=== PATIENT | male | born 1955 | race African-American/Black ===

== ENCOUNTER 2016-07-24 12:58 | Inpatient (IN) | payer OTHER ==
[2016-07-24 13:26] VITALS: BMI 37.0
--- NOTE | 2016-07-24 15:36 | HP ---
CIWA Score - CIWA Score Nausea/Vomitin-Mild Nausea/No Vomiting Muscle Tremors: 4-Moderate,w/Arms Extend Anxiety: 3 Agitation: 4-Moderately Restless Paroxysmal Sweats: 3 Orientation: 0-Oriented Tacttile Disturbances: 0-None Auditory Disturbances: 0-None Visual Disturbances: 0-None Headache: 1-Very Mild CIWA-Ar Total Score: 16 Admission ROS BHS - HPI Chief Complaint: I am here to detox. Allergies/Adverse Reactions: Allergies Allergy/AdvReac Type Severity Reaction Status Date / Time No Known Allergies Allergy Verified 07/24/16 14:12 History of Present Illness: pt is a 60yr old male with a history of alcohol and cocaine dependence seeking detox for treatment. Exam Limitations: No Limitations - Ebola screening Have you traveled outside of the country in the last 21 days: No Have you had contact with anyone from an Ebola affected area: No Have you been sick,other than usual withdrawal symptoms: No - Review of Systems Constitutional: No Symptoms Reported, Chills EENT: reports: Tearing, Nose Congestion Respiratory: reports: No Symptoms reported Cardiac: reports: No Symptoms Reported GI: reports: Nausea, Poor Appetite, Poor Fluid Intake : reports: No Symptoms Reported Musculoskeletal: reports: No Symptoms Reported, Back Pain Integumentary: reports: Flushing, Sweating Neuro: reports: Headache, Tingling Endocrine: reports: Excessive Sweating, Flushing, Intolerance to Cold, Intolerance to Heat Hematology: reports: No Symptoms Reported Psychiatric: reports: Judgement Intact, Mood/Affect Appropiate, Orientated x3, Agitated, Anxious Other Systems: Reviewed and Negative Patient History - Patient Medical History Hx Anemia: No Hx Asthma: Yes Hx Chronic Obstructive Pulmonary Disease (COPD): No Hx Cancer: No Hx Cardiac Disorders: No Hx Congestive Heart Failure: No Hx Hypertension: No Hx Hypercholesterolemia: No Hx Pacemaker: No HX Cerebrovascular Accident: No Hx Seizures: No Hx Dementia: No Hx Diabetes: Yes (NIDDM) Hx Gastrointestinal Disorders: No Hx Liver Disease: No Hx Genitourinary Disorders: No Hx Sexually Transmitted Disorders: No Hx Renal Disease (ESRD): No Hx Thyroid Disease: No Hx Human Immunodeficiency Virus (HIV): No Hx Hepatitis C: No Hx Depression: No Hx Suicide Attempt: No Hx Bipolar Disorder: No Hx Schizophrenia: No - Patient Surgical History Past Surgical History: No Hx Neurologic Surgery: No Hx Cataract Extraction: No Hx Cardiac Surgery: No Hx Lung Surgery: No Hx Breast Surgery: No Hx Breast Biopsy: No Hx Abdominal Surgery: No Hx Appendectomy: No Hx Cholecystectomy: No Hx Genitourinary Surgery: No Hx Section: No Hx Orthopedic Surgery: No Anesthesia Reaction: No - PPD History Previous Implant?: Yes Documented Results: Negative w/o proof PPD to be Administered?: Yes - Reproductive History Patient is a Female of Child Bearing Age (11 -55 yrs old): No - Smoking Cessation Smoking history: Current every day smoker Have you smoked in the past 12 months: Yes Aproximately how many cigarettes per day: 3 Hx Chewing Tobacco Use: No Initiated information on smoking cessation: Yes 'Breaking Loose' booklet given: 07/24/16 - Substance & Tx. History Hx Alcohol Use: Yes Hx Substance Use: Yes Substance Use Type: Alcohol, Cocaine Hx Substance Use Treatment: Yes - Substances Abused Crack Route: Smoking Frequency: 1-2 times per week Amount used: $80 Age of first use: 48 Date of Last Use: 07/22/16 Alcohol-beer Route: Oral Frequency: Daily Amount used: 6 (40 oz.) Age of first use: 16 Date of Last Use: 07/24/16 Family Disease History - Family Disease History Family History: Denies Admission Physical Exam S - Vital Signs Vital Signs: Vital Signs - 24 hr 07/24/16 13:21 Temperature 97.9 F Pulse Rate 91 H Respiratory 20 Rate Blood Pressure 137/105 - Physical General Appearance: Yes: Appropriately Dressed, Moderate Distress, Obese, Tremorous, Irritable, Sweating, Anxious HEENTM: Yes: Hearing grossly Normal, Normal Voice Respiratory: Yes: Lungs Clear, Normal Breath Sounds, No Respiratory Distress Neck: Yes: No masses,lesions,Nodules Breast: Yes: Within Normal Limits Cardiology: Yes: Regular Rhythm, Regular Rate, S1, S2 Abdominal: Yes: Normal Bowel Sounds, Non Tender, Soft Genitourinary: Yes: Within Normal Limits Back: Yes: Normal Inspection Musculoskeletal: Yes: Gait Steady, Back pain Extremities: Yes: Normal Capillary Refill, Normal Inspection, Tremors Neurological: Yes: Fully Oriented, Alert, Normal Response Integumentary: Yes: Normal Color Lymphatic: Yes: Within Normal Limits - Diagnostic (1) Alcohol dependence with uncomplicated withdrawal Current Visit: Yes Status: Chronic (2) Cocaine dependence, uncomplicated Current Visit: Yes Status: Chronic (3) Nicotine dependence Current Visit: Yes Status: Chronic Qualifiers: Nicotine product type: cigarettes Substance use status: uncomplicated Qualified Code(s): F17.210 - Nicotine dependence, cigarettes, uncomplicated (4) Asthma Current Visit: Yes Status: Chronic Qualifiers: Asthma severity: mild intermittent (5) Diabetes mellitus Current Visit: Yes Status: Chronic Qualifiers: Diabetes mellitus type: type 1 Diabetes mellitus complication status: without complication Qualified Code(s): E10.9 - Type 1 diabetes mellitus without complications Cleared for Admission BHS - Detox or Rehab S Level of Care: Medically Managed Detox Regimen/Protocol: Librium S Breath Alcohol Content Breath Alcohol Content: 0.037 Urine Drug Screen - Results Drug Screen Negative: Yes
[2016-07-24] MEDS ORDERED: chlordiazePOXIDE HCL 25 MG CAPSULE PO PRN (15:38)
[2016-07-24] MEDS ORDERED: MAG HYDROX/AL HYDROX/SIMETH 30 ML UNIT-DOSE CUP PO PRN (15:38)
[2016-07-24] MEDS ORDERED: MAGNESIUM HYDROX 2400MG/30ML ORAL SUSPENSION 30 ML CUP PO PRN (15:38)
[2016-07-24] MEDS ORDERED: hydrOXYzine PAMOATE 50 MG CAPSULE (FP) PO PRN (15:38)
[2016-07-24] MEDS ORDERED: guaiFENesin/D-METHORPHAN HB 10 ML UNIT-DOSE CUPS PO PRN (15:38)
[2016-07-24] MEDS ORDERED: P-EPHED 60MG/TRIPROLIDI 2.5MG TABLET PO PRN (15:38)
[2016-07-24] MEDS ORDERED: IBUPROFEN 400 MG TABLET (FP) PO PRN (15:38)
[2016-07-24] MEDS ORDERED: ACETAMINOPHEN 325 MG TABLET (FP) PO PRN (15:38)
[2016-07-24] MEDS ORDERED: MAGNESIUM CITRATE 300 ML BOTTLE PO PRN (15:38)
[2016-07-24] MEDS ORDERED: LOPERAMIDE HCL 2 MG CAPSULE PO PRN (15:38)
[2016-07-24] MEDS ORDERED: MENTHOL/PHENOL 1 EACH UD MM PRN (15:38)
[2016-07-24] MEDS ORDERED: chlordiazePOXIDE HCL 25 MG CAPSULE PO ONE (15:49)
[2016-07-24] MEDS: chlordiazePOXIDE HCL 25 MG CAPSULE PO SCH ×2 (17:15→22:49)
[2016-07-24] MEDS: metFORMIN HCL 500 MG TABLET (FP) PO SCH (18:48)
[2016-07-24 20:47] LABS: URINE APPEARANCE CLEAR; URINE BILIRUBIN NEGATIVE (NEGATIVE); URINE BLOOD NEGATIVE (NEGATIVE); URINE COLOR LTYELLOW; URINE GLUCOSE (UA) 1+ (NEGATIVE); URINE KETONE TRACE (NEGATIVE); URINE LEUK ESTERASE NEGATIVE (NEGATIVE); URINE NITRITE NEGATIVE (NEGATIVE); URINE UROBILINOGEN NEGATIVE E.U./dl (0.2-1.0)
[2016-07-24 20:49] LABS: URINE PROTEIN 1+ (NEGATIVE)
[2016-07-24 20:51] LABS: URINE MUCUS RARE; URINE RBC 1 /hpf (0-3); URINE WBC 9 /hpf (3-5)
[2016-07-24] MEDS ORDERED: diphenhydrAMINE HCL 50 MG CAPSULE PO PRN (22:00)
[2016-07-24] MEDS: THIAMINE HCL 100 MG TABLET (FP) PO SCH (22:45)
[2016-07-24] MEDS: PATIENT'S OWN MEDICATION (NON-FORMULARY) (Mometasone/Formoterol [Dulera 200 Mcg/5 Mcg Inha IH SCH (22:47)
[2016-07-25] MEDS: chlordiazePOXIDE HCL 25 MG CAPSULE PO SCH ×4 (05:38→23:56)
[2016-07-25] MEDS: metFORMIN HCL 500 MG TABLET (FP) PO SCH ×2 (06:55→17:16)
[2016-07-25 10:03] LABS: MCH 31.8 pg (25.7-33.7); MCHC 32.6 g/dl (32.0-35.9); MEAN CELL VOLUME 97.5 fl (80-96); MEAN PLT VOLUME 9.7 fl (7.5-11.1); PLATELET COUNT 223 K/MM3 (134-434); RDW 14.2 % (11.9-15.9); WHITE BLOOD COUNT 6.9 K/mm3 (4.0-10.0)
[2016-07-25 10:27] LABS: ALBUMIN 3.6 g/dl (3.4-5.0); SGOT/AST 18 U/L (15-37); SGPT/ALT 36 U/L (12-78)
[2016-07-25] MEDS: PATIENT'S OWN MEDICATION (NON-FORMULARY) (Mometasone/Formoterol [Dulera 200 Mcg/5 Mcg Inha IH SCH ×2 (10:28→22:55)
[2016-07-25] MEDS: PRENATAL VITAMINS W/ FOLIC ACID TABLET (FP) PO SCH (10:28)
[2016-07-25 10:30] LABS: ALK PHOS 108 U/L (45-117); ANION GAP 14 (8-16); BILIRUBIN,TOTAL 0.4 mg/dL (0.2-1.0); CO2 24 mmol/L (21-32); CREATININE 0.7 mg/dL (0.7-1.3); GLUCOSE,RANDOM 162 mg/dL (74-106)
[2016-07-25] MEDS: ALBUTEROL SO4 6.7 GM HFA INHALER IH PRN ×2 (10:31→17:16)
--- NOTE | 2016-07-25 10:33 | PN ---
S CIWA - CIWA Score Nausea/Vomitin-No Nausea/No Vomiting Muscle Tremors: 4-Moderate,w/Arms Extend Anxiety: 3 Agitation: 4-Moderately Restless Paroxysmal Sweats: 3 Orientation: 0-Oriented Tacttile Disturbances: 0-None Auditory Disturbances: 0-None Visual Disturbances: 0-None Headache: 0-None Present CIWA-Ar Total Score: 14 BHS Progress Note (SOAP) Subjective: sweats headache interrupted sleep agitation Objective: 07/25/16 10:32 Vital Signs Temperature 97.9 F 07/25/16 09:32 Pulse Rate 93 H 07/25/16 09:32 Respiratory Rate 16 07/25/16 09:32 Blood Pressure 141/84 07/25/16 09:32 O2 Sat by Pulse Oximetry (%) Laboratory Tests 07/24/16 07/24/16 07/24/16 14:32 20:00 22:47 WBC RBC Hgb Hct MCV MCHC RDW Plt Count MPV POC Glucometer 165 124 Urine Color Ltyellow Urine Appearance Clear Urine pH 8.0 D Ur Specific [place] 1.019 Urine Protein 1+ H Urine Glucose (UA) 1+ H Urine Ketones Trace H Urine Blood Negative Urine Nitrite Negative Urine Bilirubin Negative Urine Urobilinogen Negative Ur Leukocyte Esterase Negative Urine RBC 1 Urine WBC 9 Ur Epithelial Cells Rare Urine Mucus Rare 07/25/16 07/25/16 05:41 06:00 WBC 6.9 RBC 4.51 Hgb 14.3 Hct 43.9 MCV 97.5 H MCHC 32.6 RDW 14.2 Plt Count 223 MPV 9.7 POC Glucometer 150 Urine Color Urine Appearance Urine pH Ur Specific [place] Urine Protein Urine Glucose (UA) Urine Ketones Urine Blood Urine Nitrite Urine Bilirubin Urine Urobilinogen Ur Leukocyte Esterase Urine RBC Urine WBC Ur Epithelial Cells Urine Mucus rest of labs pending awake/alert ambulating no acute distress Assessment: 07/25/16 10:32 withdrawal sx Plan: continue detox increase fluids labs pending
[2016-07-25 11:20] LABS: HIV 1 & 2 AB NEGATIVE; HIV 1 AGp24 NEGATIVE
--- NOTE | 2016-07-25 17:38 | EKG ---
Test Reason : Blood Pressure : / mmHG Vent. Rate : 084 BPM Atrial Rate : 084 BPM P-R Int : 116 ms QRS Dur : 078 ms QT Int : 350 ms P-R-T Axes : 072 -36 030 degrees QTc Int : 413 ms POOR DATA QUALITY, INTERPRETATION MAY BE ADVERSELY AFFECTED NORMAL SINUS RHYTHM POSSIBLE LEFT ATRIAL ENLARGEMENT LEFT AXIS DEVIATION ABNORMAL ECG NO PREVIOUS ECGS AVAILABLE Confirmed by JAIRO KATZ, [place] ([id number]) on 07/25/2016 5:37:47 PM Referred By: Confirmed By:CLINTON GILL MD
[2016-07-25] MEDS: THIAMINE HCL 100 MG TABLET (FP) PO SCH (22:55)
[2016-07-26] MEDS: ALBUTEROL SO4 6.7 GM HFA INHALER IH PRN ×2 (04:41→16:58)
[2016-07-26] MEDS: ALBUTEROL SO4 2.5/IPRATROPIUM 0.5 INH SOL 3 ML VIAL.NEB. NEB PRN (05:11)
[2016-07-26] MEDS: chlordiazePOXIDE HCL 25 MG CAPSULE PO SCH ×2 (05:27→10:19)
[2016-07-26] MEDS: metFORMIN HCL 500 MG TABLET (FP) PO SCH ×2 (07:07→16:45)
[2016-07-26] MEDS: PRENATAL VITAMINS W/ FOLIC ACID TABLET (FP) PO SCH (10:18)
[2016-07-26] MEDS: PATIENT'S OWN MEDICATION (NON-FORMULARY) (Mometasone/Formoterol [Dulera 200 Mcg/5 Mcg Inha IH SCH ×2 (10:19→22:51)
--- NOTE | 2016-07-26 11:09 | PN ---
[facility] CIWA - CIWA Score Nausea/Vomitin Muscle Tremors: 3 Anxiety: 3 Agitation: 2 Paroxysmal Sweats: 1-Minimal Palms Moist Orientation: 0-Oriented Tacttile Disturbances: 1-Very Mild Itch/Numbness Auditory Disturbances: 1-Very Mild Visual Disturbances: 1-Very Mild Sensitivity Headache: 2-Mild CIWA-Ar Total Score: 17 BHS Progress Note (SOAP) Subjective: ALERT,IRRITABLE,ANXIOUS,INTERRUPTED SLEEP,TREMOR, Objective: 07/26/16 11:07 Vital Signs Temperature 96.8 F L 07/26/16 06:00 Pulse Rate 72 07/26/16 06:00 Respiratory Rate 20 07/26/16 06:00 Blood Pressure 133/74 07/26/16 06:00 O2 Sat by Pulse Oximetry (%) Laboratory Last Values WBC 6.9 K/mm3 (4.0-10.0) 07/25/16 06:00 RBC 4.51 M/mm3 (4.00-5.60) 07/25/16 06:00 Hgb 14.3 GM/dL (11.7-16.9) 07/25/16 06:00 Hct 43.9 % (35.4-49) 07/25/16 06:00 MCV 97.5 fl (80-96) H 07/25/16 06:00 MCHC 32.6 g/dl (32.0-35.9) 07/25/16 06:00 RDW 14.2 % (11.9-15.9) 07/25/16 06:00 Plt Count 223 K/MM3 (134-434) 07/25/16 06:00 MPV 9.7 fl (7.5-11.1) 07/25/16 06:00 Sodium 137 mmol/L (136-145) 07/25/16 06:00 Potassium 4.2 mmol/L (3.5-5.1) 07/25/16 06:00 Chloride 99 mmol/L (98-107) 07/25/16 06:00 Carbon Dioxide 24 mmol/L (21-32) 07/25/16 06:00 Anion Gap 14 (8-16) 07/25/16 06:00 BUN 12 mg/dL (7-18) D 07/25/16 06:00 Creatinine 0.7 mg/dL (0.7-1.3) D 07/25/16 06:00 Creat Clearance w eGFR > 60 (>60) 07/25/16 06:00 POC Glucometer 178 UNITS (()) 07/25/16 16:22 Random Glucose 162 mg/dL (74-106) H D 07/25/16 06:00 Calcium 9.0 mg/dL (8.5-10.1) 07/25/16 06:00 Total Bilirubin 0.4 mg/dL (0.2-1.0) D 07/25/16 06:00 AST 18 U/L (15-37) D 07/25/16 06:00 ALT 36 U/L (12-78) 07/25/16 06:00 Alkaline Phosphatase 108 U/L (45-117) 07/25/16 06:00 Total Protein 7.0 g/dl (6.4-8.2) 07/25/16 06:00 Albumin 3.6 g/dl (3.4-5.0) 07/25/16 06:00 Urine Color Ltyellow 07/24/16 20:00 Urine Appearance Clear 07/24/16 20:00 Urine pH 8.0 (5.0-8.0) D 07/24/16 20:00 Ur Specific [place] 1.019 (1.001-1.035) 07/24/16 20:00 Urine Protein 1+ (NEGATIVE) H 07/24/16 20:00 Urine Glucose (UA) 1+ (NEGATIVE) H 07/24/16 20:00 Urine Ketones Trace (NEGATIVE) H 07/24/16 20:00 Urine Blood Negative (NEGATIVE) 07/24/16 20:00 Urine Nitrite Negative (NEGATIVE) 07/24/16 20:00 Urine Bilirubin Negative (NEGATIVE) 07/24/16 20:00 Urine Urobilinogen Negative E.U./dl (0.2-1.0) 07/24/16 20:00 Ur Leukocyte Esterase Negative (NEGATIVE) 07/24/16 20:00 Urine RBC 1 /hpf (0-3) 07/24/16 20:00 Urine WBC 9 /hpf (3-5) 07/24/16 20:00 Ur Epithelial Cells Rare /hpf (FEW) 07/24/16 20:00 Urine Mucus Rare 07/24/16 20:00 RPR Titer Nonreactive (NONREACTIVE) 07/25/16 06:00 HIV 1&2 Antibody Screen Negative 07/24/16 08:30 HIV P24 Antigen Negative 07/24/16 08:30 Assessment: 07/26/16 11:08 WITHDRAWAL SYMPTOM Plan: CONTINUE DETOX,BGM IS 154,BGM MONITORING
[2016-07-26] MEDS: chlordiazePOXIDE 5 MG CAPSULE PO SCH ×2 (16:47→22:52)
[2016-07-26] MEDS: THIAMINE HCL 100 MG TABLET (FP) PO SCH (22:51)
[2016-07-27] MEDS: ALBUTEROL SO4 6.7 GM HFA INHALER IH PRN ×3 (00:29→15:37)
[2016-07-27] MEDS: chlordiazePOXIDE 5 MG CAPSULE PO SCH ×2 (05:44→10:36)
[2016-07-27] MEDS: metFORMIN HCL 500 MG TABLET (FP) PO SCH ×2 (08:14→17:30)
[2016-07-27] MEDS: PRENATAL VITAMINS W/ FOLIC ACID TABLET (FP) PO SCH (10:36)
[2016-07-27] MEDS: PATIENT'S OWN MEDICATION (NON-FORMULARY) (Mometasone/Formoterol [Dulera 200 Mcg/5 Mcg Inha IH SCH ×2 (10:37→22:55)
--- NOTE | 2016-07-27 11:54 | PN ---
S Progress Note (SOAP) Subjective: ALERT,IRRITABLE,INTERRUPTED SLEEP Objective: 07/27/16 11:51 Vital Signs Temperature 97.9 F 07/27/16 10:01 Pulse Rate 82 07/27/16 10:01 Respiratory Rate 18 07/27/16 10:01 Blood Pressure 123/84 07/27/16 10:01 O2 Sat by Pulse Oximetry (%) Assessment: 07/27/16 11:51 WITHDRAWAL SYMPTOM Plan: CONTINUE DETOX,POSITIVE PPD 15 MM,CHEST XRAY ON Fri07/29/16 BEFORE DISCHARGE
[2016-07-27] MEDS: chlordiazePOXIDE HCL 10 MG CAPSULE PO SCH ×2 (17:50→23:46)
[2016-07-27] MEDS: THIAMINE HCL 100 MG TABLET (FP) PO SCH (22:55)
[2016-07-28] MEDS: chlordiazePOXIDE HCL 10 MG CAPSULE PO SCH ×2 (05:41→10:38)
[2016-07-28] MEDS: ALBUTEROL SO4 6.7 GM HFA INHALER IH PRN ×3 (05:42→17:47)
[2016-07-28] MEDS: metFORMIN HCL 500 MG TABLET (FP) PO SCH ×2 (08:14→17:25)
[2016-07-28] MEDS: PATIENT'S OWN MEDICATION (NON-FORMULARY) (Mometasone/Formoterol [Dulera 200 Mcg/5 Mcg Inha IH SCH ×2 (10:38→22:37)
[2016-07-28] MEDS: PRENATAL VITAMINS W/ FOLIC ACID TABLET (FP) PO SCH (10:38)
--- NOTE | 2016-07-28 11:16 | PN ---
S Progress Note (SOAP) Subjective: ALERT,IRRITABLE,INTERRUPTED SLEEP Objective: 07/28/16 11:15 Vital Signs Temperature 98.1 F 07/28/16 10:40 Pulse Rate 88 07/28/16 10:40 Respiratory Rate 18 07/28/16 10:40 Blood Pressure 139/78 07/28/16 10:40 O2 Sat by Pulse Oximetry (%) Assessment: 07/28/16 11:15 WITHDRAWAL SYMPTOM Plan: CONTINUE DETOX,DISCHARGE PATIENT IN AM AFTER CHEST X RAY
[2016-07-28] MEDS: ALBUTEROL SO4 2.5/IPRATROPIUM 0.5 INH SOL 3 ML VIAL.NEB. NEB PRN (18:34)
[2016-07-28] MEDS: THIAMINE HCL 100 MG TABLET (FP) PO SCH (22:38)
[2016-07-29] MEDS: ALBUTEROL SO4 6.7 GM HFA INHALER IH PRN (02:51)
[2016-07-29] MEDS: metFORMIN HCL 500 MG TABLET (FP) PO SCH (06:04)
--- NOTE | 2016-07-29 09:01 | PN ---
S Progress Note (SOAP) Subjective: ALERT,NO COMPLAINT Objective: 07/29/16 08:59 Vital Signs Temperature 97.5 F L 07/29/16 06:00 Pulse Rate 73 07/29/16 06:00 Respiratory Rate 20 07/29/16 06:00 Blood Pressure 136/77 07/29/16 06:00 O2 Sat by Pulse Oximetry (%) Assessment: 07/29/16 08:59 DETOX COMPLETED,N WITHDRAWAL SYMPTOM Plan: DISCHARGE TODAY AFTER CHEST X RAY,FOLLOW UP WITH REVELATION ARRANGEMENT
[2016-07-29 10:15] VITALS: BP 144/75; PULSE 88; TEMP 97.7
[2016-07-29] MEDS: PRENATAL VITAMINS W/ FOLIC ACID TABLET (FP) PO SCH (10:26)
== END 2016-07-29 11:45 | disposition other institution (70) | DRG 774 ==
LOC: YASAS 12:58 → Y6N 15:28
PROVIDERS: ADMIT Internal Medicine Addiction Medicine; ATTEND Internal Medicine Addiction Medicine
PROC: HZ2ZZZZ Detoxification Services for Substance Abuse Treatment (ICD-10-PCS; principal; 2016-07-29)
DX: F10.230 Alcohol dependence with withdrawal, uncomplicated (principal); F14.20 Cocaine dependence, uncomplicated; F17.210 Nicotine dependence, cigarettes, uncomplicated; E10.9 Type 1 diabetes mellitus without complications; J45.20 Mild intermittent asthma, uncomplicated; Z79.4 Long term (current) use of insulin
CPT/HCPCS: 36415; 71010-TC; 80053; 81003; 81015; 85027; 86593; 87389; 93005; 93010; 94640

== ENCOUNTER 2016-07-29 11:36 | Inpatient (IN) | payer OTHER ==
[2016-07-29] MEDS ORDERED: MAGNESIUM CITRATE 300 ML BOTTLE PO PRN (13:59)
[2016-07-29] MEDS ORDERED: MAG HYDROX/AL HYDROX/SIMETH 30 ML UNIT-DOSE CUP PO PRN (13:59)
[2016-07-29] MEDS ORDERED: MAGNESIUM HYDROX 2400MG/30ML ORAL SUSPENSION 30 ML CUP PO PRN (13:59)
[2016-07-29] MEDS ORDERED: LOPERAMIDE HCL 2 MG CAPSULE PO PRN (13:59)
[2016-07-29] MEDS ORDERED: MENTHOL/PHENOL 1 EACH UD MM PRN (13:59)
[2016-07-29] MEDS ORDERED: P-EPHED 60MG/TRIPROLIDI 2.5MG TABLET PO PRN (13:59)
[2016-07-29] MEDS ORDERED: hydrOXYzine PAMOATE 50 MG CAPSULE (FP) PO PRN (13:59)
[2016-07-29] MEDS ORDERED: IBUPROFEN 400 MG TABLET (FP) PO PRN (13:59)
--- NOTE | 2016-07-29 14:21 | HP ---
Psychiatrist Admission - Data Date of interview: 07/29/16 Admission source: 6N Identifying data: This is the second [facility] admission for this 60 years old Black male, father of 4 children, unemployed on SSI, domiciled seeking rehab treatment for alcohol and cocaine Medical History: Significant for Asthma/COPD, NIDDM. Smokes 3 cigarettes daily Psychiatric History: Denies history of previous psychiatric treatment Physical/Sexual Abuse/Trauma History: Denies history of physical, sexual abuse as well as DV relationship Additional Comment: Reports of 2 previous misdemeanor arrests. Denies being on probation at present Vital Signs: Vital Signs - 24 hr 07/29/16 11:56 Temperature 97.8 F Pulse Rate 93 H Respiratory 20 Rate Blood Pressure 117/78 Allergies/Adverse Reactions: Allergies Allergy/AdvReac Type Severity Reaction Status Date / Time No Known Allergies Allergy Verified 07/29/16 11:54 Date of last physical exam: 07/24/16 Concur with the findings of this exam: Yes - Substance Abuse/Tx History Hx Alcohol Use: Yes Hx Substance Use: Yes Substance Use Type: Alcohol (Started drinking alcohol at age 16, consumes 6x 40 oz of beer daily. Last drinkk on 07/24/16), Cocaine (Started smoking crack cocaine at age 48, consumes $80 worth daily. Last smoked on 07/22/16) Hx Substance Use Treatment: Yes (multiple previous inpt detox & inpt rehab) - Admission Criteria Previous failed treatment: Yes Poor recovery environment: Yes Comorbidities: Yes Lacks judgement: Yes Mental Status Exam - Mental Status Exam Alert and Oriented to: Time, Place, Person Cognitive Function: Fair Patient Appearance: Well Groomed Mood: Hopeful, Euthymic Affect: Normal Range Patient Behavior: Cooperative Speech Pattern: Clear Voice Loudness: Normal Thought Process: Intact, Goal Oriented Thought Disorder: Not Present Hallucinations: Denies Suicidal Ideation: Denies Homicidal Ideation: Denies Insight/Judgement: Fair Sleep: Well Appetite: Good Muscle strength/Tone: Normal Gait/Station: Antalgic (walks with a cane) Psychiatric Findings - Problem List ([place] 1, 2,3) (1) Alcohol dependence with uncomplicated withdrawal Current Visit: No Status: Chronic (2) Cocaine dependence, uncomplicated Current Visit: No Status: Chronic (3) Nicotine dependence Current Visit: No Status: Chronic Qualifiers: Nicotine product type: cigarettes Substance use status: uncomplicated Qualified Code(s): F17.210 - Nicotine dependence, cigarettes, uncomplicated (4) Asthma Current Visit: No Status: Chronic Qualifiers: Asthma severity: mild intermittent (5) Diabetes mellitus Current Visit: No Status: Chronic Qualifiers: Diabetes mellitus type: type 1 Diabetes mellitus complication status: without complication Qualified Code(s): E10.9 - Type 1 diabetes mellitus without complications - Initial Treatment Plan Initial Treatment Plan: Monitor progress
[2016-07-29] MEDS: ALBUTEROL SO4 6.7 GM HFA INHALER IH PRN (16:07)
--- NOTE | 2016-07-29 16:22 | HP ---
ARIEL KATZ Rehab Assess/Revision - Admission History Admitted to Rehab from: [facility] Date of Admission to Rehab: 07/29/16 - Vital signs Vital Signs: Vital Signs Period Temp Pulse Resp BP Sys/Solorio Pulse Ox Last 24 Hr 97.8 F 93 20 117/78 - Findings Detox History & Physical reviewed: Yes Concur with findings: Yes Comments/Additional Findings: transferred from detox to rehab admission as per protocol
[2016-07-29] MEDS: metFORMIN HCL 500 MG TABLET (FP) PO SCH (17:01)
[2016-07-29] MEDS: ACETAMINOPHEN 325 MG TABLET (FP) PO PRN (17:59)
[2016-07-29] MEDS: diphenhydrAMINE HCL 50 MG CAPSULE PO PRN (21:51)
[2016-07-29] MEDS: BUDESONIDE/FORMETEROL FUMARATE 80/4.5 mcg INHALER IH SCH (21:51)
[2016-07-29] MEDS: THIAMINE HCL 100 MG TABLET (FP) PO SCH (21:51)
[2016-07-30] MEDS: metFORMIN HCL 500 MG TABLET (FP) PO SCH ×2 (06:37→16:40)
[2016-07-30] MEDS: ALBUTEROL SO4 6.7 GM HFA INHALER IH PRN (06:38)
[2016-07-30] MEDS ORDERED: predniSONE 20 MG TABLET (UD) PO ONE (08:46)
[2016-07-30] MEDS: ALBUTEROL SO4 2.5/IPRATROPIUM 0.5 INH SOL 3 ML VIAL.NEB. NEB PRN ×2 (09:32→22:52)
[2016-07-30] MEDS: PRENATAL VITAMINS W/ FOLIC ACID TABLET (FP) PO SCH (10:29)
[2016-07-30] MEDS: BUDESONIDE/FORMETEROL FUMARATE 80/4.5 mcg INHALER IH SCH ×2 (10:30→21:49)
[2016-07-30] MEDS ORDERED: INSULIN (NOVOLOG) ASPART 100 UNITS/ML 10ML VIAL ONE (21:49)
[2016-07-30] MEDS: THIAMINE HCL 100 MG TABLET (FP) PO SCH (21:50)
[2016-07-30] MEDS: diphenhydrAMINE HCL 50 MG CAPSULE PO PRN (21:50)
[2016-07-30] MEDS: INSULIN SLIDING SCALE (NOVOLOG) 1 VIAL SQ SCH (21:51)
[2016-07-31] MEDS: INSULIN SLIDING SCALE (NOVOLOG) 1 VIAL SQ SCH ×4 (06:09→21:11)
[2016-07-31] MEDS: metFORMIN HCL 500 MG TABLET (FP) PO SCH ×2 (06:09→16:47)
[2016-07-31] MEDS: ALBUTEROL SO4 6.7 GM HFA INHALER IH PRN (06:11)
[2016-07-31] MEDS ORDERED: INSULIN (NOVOLOG) ASPART 100 UNITS/ML 10ML VIAL ONE ×3 (06:57→21:09)
[2016-07-31] MEDS: predniSONE 20 MG TABLET (UD) PO SCH (10:32)
[2016-07-31] MEDS: BUDESONIDE/FORMETEROL FUMARATE 80/4.5 mcg INHALER IH SCH ×2 (10:32→21:06)
[2016-07-31] MEDS: PRENATAL VITAMINS W/ FOLIC ACID TABLET (FP) PO SCH (10:32)
[2016-07-31] MEDS: ALBUTEROL SO4 2.5/IPRATROPIUM 0.5 INH SOL 3 ML VIAL.NEB. NEB PRN (13:14)
[2016-07-31] MEDS: THIAMINE HCL 100 MG TABLET (FP) PO SCH (21:10)
[2016-07-31] MEDS: diphenhydrAMINE HCL 50 MG CAPSULE PO PRN (23:17)
[2016-08-01] MEDS: ALBUTEROL SO4 6.7 GM HFA INHALER IH PRN ×4 (05:14→21:36)
[2016-08-01] MEDS: ALBUTEROL SO4 2.5/IPRATROPIUM 0.5 INH SOL 3 ML VIAL.NEB. NEB PRN (06:57)
[2016-08-01] MEDS: INSULIN SLIDING SCALE (NOVOLOG) 1 VIAL SQ SCH ×2 (07:13→16:56)
[2016-08-01] MEDS: metFORMIN HCL 500 MG TABLET (FP) PO SCH ×2 (07:13→16:55)
[2016-08-01] MEDS: PRENATAL VITAMINS W/ FOLIC ACID TABLET (FP) PO SCH (10:11)
[2016-08-01] MEDS: BUDESONIDE/FORMETEROL FUMARATE 80/4.5 mcg INHALER IH SCH ×2 (10:11→21:36)
[2016-08-01] MEDS: predniSONE 20 MG TABLET (UD) PO SCH (10:11)
[2016-08-01] MEDS: guaiFENesin/D-METHORPHAN HB 10 ML UNIT-DOSE CUPS PO PRN (15:22)
[2016-08-01] MEDS ORDERED: INSULIN (NOVOLOG) ASPART 100 UNITS/ML 10ML VIAL ONE (17:50)
[2016-08-01] MEDS: diphenhydrAMINE HCL 50 MG CAPSULE PO PRN (21:36)
[2016-08-01] MEDS: THIAMINE HCL 100 MG TABLET (FP) PO SCH (21:36)
[2016-08-02] MEDS: ALBUTEROL SO4 6.7 GM HFA INHALER IH PRN ×3 (01:53→19:28)
[2016-08-02] MEDS: metFORMIN HCL 500 MG TABLET (FP) PO SCH ×2 (06:08→16:43)
[2016-08-02] MEDS: INSULIN SLIDING SCALE (NOVOLOG) 1 VIAL SQ SCH ×2 (06:08→16:44)
[2016-08-02] MEDS: PRENATAL VITAMINS W/ FOLIC ACID TABLET (FP) PO SCH (10:36)
[2016-08-02] MEDS: predniSONE 10 MG TABLET (UD) PO SCH (10:36)
[2016-08-02] MEDS: BUDESONIDE/FORMETEROL FUMARATE 80/4.5 mcg INHALER IH SCH ×2 (10:55→21:26)
[2016-08-02] MEDS: diphenhydrAMINE HCL 50 MG CAPSULE PO PRN (21:26)
[2016-08-02] MEDS: THIAMINE HCL 100 MG TABLET (FP) PO SCH (21:26)
[2016-08-03] MEDS: metFORMIN HCL 500 MG TABLET (FP) PO SCH ×2 (06:50→16:31)
[2016-08-03] MEDS: INSULIN SLIDING SCALE (NOVOLOG) 1 VIAL SQ SCH ×2 (06:50→16:32)
[2016-08-03] MEDS: ALBUTEROL SO4 6.7 GM HFA INHALER IH PRN ×2 (08:34→20:18)
[2016-08-03] MEDS: PRENATAL VITAMINS W/ FOLIC ACID TABLET (FP) PO SCH (10:16)
[2016-08-03] MEDS: predniSONE 10 MG TABLET (UD) PO SCH (10:16)
[2016-08-03] MEDS: BUDESONIDE/FORMETEROL FUMARATE 80/4.5 mcg INHALER IH SCH ×2 (10:17→21:54)
[2016-08-03] MEDS ORDERED: INSULIN (NOVOLOG) ASPART 100 UNITS/ML 10ML VIAL ONE (16:30)
[2016-08-03] MEDS: THIAMINE HCL 100 MG TABLET (FP) PO SCH (21:54)
[2016-08-03] MEDS: diphenhydrAMINE HCL 50 MG CAPSULE PO PRN (22:39)
[2016-08-04] MEDS: metFORMIN HCL 500 MG TABLET (FP) PO SCH ×2 (06:37→16:32)
[2016-08-04] MEDS: INSULIN SLIDING SCALE (NOVOLOG) 1 VIAL SQ SCH ×2 (06:38→16:34)
[2016-08-04] MEDS: PRENATAL VITAMINS W/ FOLIC ACID TABLET (FP) PO SCH (10:20)
[2016-08-04] MEDS: BUDESONIDE/FORMETEROL FUMARATE 80/4.5 mcg INHALER IH SCH ×2 (10:20→21:26)
[2016-08-04] MEDS: predniSONE 20 MG TABLET (UD) PO SCH (10:21)
[2016-08-04] MEDS: ALBUTEROL SO4 6.7 GM HFA INHALER IH PRN ×2 (14:00→17:00)
[2016-08-04] MEDS ORDERED: INSULIN (NOVOLOG) ASPART 100 UNITS/ML 10ML VIAL ONE (16:32)
[2016-08-04] MEDS: THIAMINE HCL 100 MG TABLET (FP) PO SCH (21:26)
[2016-08-04] MEDS: diphenhydrAMINE HCL 50 MG CAPSULE PO PRN (21:26)
[2016-08-05] MEDS: ALBUTEROL SO4 6.7 GM HFA INHALER IH PRN (04:30)
[2016-08-05] MEDS: ALBUTEROL SO4 2.5/IPRATROPIUM 0.5 INH SOL 3 ML VIAL.NEB. NEB PRN ×2 (05:08→10:58)
[2016-08-05] MEDS: metFORMIN HCL 500 MG TABLET (FP) PO SCH ×2 (06:37→16:44)
[2016-08-05] MEDS: INSULIN SLIDING SCALE (NOVOLOG) 1 VIAL SQ SCH ×2 (06:37→16:45)
[2016-08-05] MEDS: BUDESONIDE/FORMETEROL FUMARATE 80/4.5 mcg INHALER IH SCH ×2 (10:53→21:57)
[2016-08-05] MEDS: PRENATAL VITAMINS W/ FOLIC ACID TABLET (FP) PO SCH (10:53)
[2016-08-05] MEDS: predniSONE 20 MG TABLET (UD) PO SCH (10:53)
[2016-08-05] MEDS ORDERED: INSULIN (NOVOLOG) ASPART 100 UNITS/ML 10ML VIAL ONE (19:10)
[2016-08-05] MEDS: THIAMINE HCL 100 MG TABLET (FP) PO SCH (21:56)
[2016-08-05] MEDS: diphenhydrAMINE HCL 50 MG CAPSULE PO PRN (21:56)
[2016-08-05] MEDS: TOLNAFTATE 1% CREAM 15 GM TUBE TP SCH (21:57)
[2016-08-06] MEDS: ALBUTEROL SO4 6.7 GM HFA INHALER IH PRN ×3 (05:56→18:27)
[2016-08-06] MEDS: ALBUTEROL SO4 2.5/IPRATROPIUM 0.5 INH SOL 3 ML VIAL.NEB. NEB PRN ×2 (06:27→12:40)
[2016-08-06] MEDS: INSULIN SLIDING SCALE (NOVOLOG) 1 VIAL SQ SCH ×2 (07:46→16:47)
[2016-08-06] MEDS: metFORMIN HCL 500 MG TABLET (FP) PO SCH ×2 (07:47→16:46)
[2016-08-06] MEDS ORDERED: predniSONE 10 MG TABLET (UD) PO SCH (10:00)
[2016-08-06] MEDS: PRENATAL VITAMINS W/ FOLIC ACID TABLET (FP) PO SCH (10:35)
[2016-08-06] MEDS: predniSONE 20 MG TABLET (UD) PO SCH (10:35)
[2016-08-06] MEDS: BUDESONIDE/FORMETEROL FUMARATE 80/4.5 mcg INHALER IH SCH ×2 (10:37→22:08)
[2016-08-06] MEDS: TOLNAFTATE 1% CREAM 15 GM TUBE TP SCH ×2 (10:37→22:09)
[2016-08-06] MEDS: diphenhydrAMINE HCL 50 MG CAPSULE PO PRN (22:08)
[2016-08-06] MEDS: THIAMINE HCL 100 MG TABLET (FP) PO SCH (22:08)
[2016-08-07] MEDS: ALBUTEROL SO4 2.5/IPRATROPIUM 0.5 INH SOL 3 ML VIAL.NEB. NEB PRN (03:38)
[2016-08-07] MEDS: metFORMIN HCL 500 MG TABLET (FP) PO SCH ×2 (07:25→16:42)
[2016-08-07] MEDS: INSULIN SLIDING SCALE (NOVOLOG) 1 VIAL SQ SCH ×2 (07:26→16:43)
[2016-08-07] MEDS: ALBUTEROL SO4 6.7 GM HFA INHALER IH PRN ×2 (09:03→18:48)
[2016-08-07] MEDS: predniSONE 20 MG TABLET (UD) PO SCH (10:42)
[2016-08-07] MEDS: PRENATAL VITAMINS W/ FOLIC ACID TABLET (FP) PO SCH (10:42)
[2016-08-07] MEDS: BUDESONIDE/FORMETEROL FUMARATE 80/4.5 mcg INHALER IH SCH ×2 (10:42→21:43)
[2016-08-07] MEDS: TOLNAFTATE 1% CREAM 15 GM TUBE TP SCH ×2 (10:43→21:44)
[2016-08-07] MEDS: THIAMINE HCL 100 MG TABLET (FP) PO SCH (21:44)
[2016-08-07] MEDS: diphenhydrAMINE HCL 50 MG CAPSULE PO PRN (21:44)
[2016-08-08] MEDS: metFORMIN HCL 500 MG TABLET (FP) PO SCH ×2 (06:22→16:27)
[2016-08-08] MEDS: INSULIN SLIDING SCALE (NOVOLOG) 1 VIAL SQ SCH ×2 (07:04→16:29)
[2016-08-08] MEDS: ALBUTEROL SO4 2.5/IPRATROPIUM 0.5 INH SOL 3 ML VIAL.NEB. NEB PRN (08:29)
[2016-08-08] MEDS ORDERED: predniSONE 5 MG TABLET (UD) PO ONE (10:00)
[2016-08-08] MEDS: PRENATAL VITAMINS W/ FOLIC ACID TABLET (FP) PO SCH (10:40)
[2016-08-08] MEDS: TOLNAFTATE 1% CREAM 15 GM TUBE TP SCH ×2 (10:41→21:37)
[2016-08-08] MEDS: BUDESONIDE/FORMETEROL FUMARATE 80/4.5 mcg INHALER IH SCH ×2 (10:41→21:37)
--- NOTE | 2016-08-08 15:21 | PN ---
BHS Progress Note Note: pt was on xaralto 20mg /d for dvt lle . Xaralto restarted.
[2016-08-08] MEDS ORDERED: INSULIN (NOVOLOG) ASPART 100 UNITS/ML 10ML VIAL ONE (16:27)
[2016-08-08] MEDS: ALBUTEROL SO4 6.7 GM HFA INHALER IH PRN (20:02)
[2016-08-08] MEDS: diphenhydrAMINE HCL 50 MG CAPSULE PO PRN (21:37)
[2016-08-08] MEDS: THIAMINE HCL 100 MG TABLET (FP) PO SCH (21:37)
[2016-08-09] MEDS: ALBUTEROL SO4 6.7 GM HFA INHALER IH PRN (03:45)
[2016-08-09] MEDS: ALBUTEROL SO4 2.5/IPRATROPIUM 0.5 INH SOL 3 ML VIAL.NEB. NEB PRN (05:03)
[2016-08-09] MEDS: INSULIN SLIDING SCALE (NOVOLOG) 1 VIAL SQ SCH ×2 (07:21→16:40)
[2016-08-09] MEDS: metFORMIN HCL 500 MG TABLET (FP) PO SCH ×2 (07:21→16:38)
[2016-08-09] MEDS: BUDESONIDE/FORMETEROL FUMARATE 80/4.5 mcg INHALER IH SCH ×2 (10:52→21:55)
[2016-08-09] MEDS: PRENATAL VITAMINS W/ FOLIC ACID TABLET (FP) PO SCH (10:52)
[2016-08-09] MEDS: TOLNAFTATE 1% CREAM 15 GM TUBE TP SCH (10:52)
[2016-08-09] MEDS: RIVAROXABAN 20 MG TABLET PO SCH (16:38)
[2016-08-09] MEDS ORDERED: INSULIN (NOVOLOG) ASPART 100 UNITS/ML 10ML VIAL ONE (16:38)
[2016-08-09] MEDS: diphenhydrAMINE HCL 50 MG CAPSULE PO PRN (21:56)
[2016-08-09] MEDS: THIAMINE HCL 100 MG TABLET (FP) PO SCH (21:56)
[2016-08-09] MEDS: ACETAMINOPHEN 325 MG TABLET (FP) PO PRN (21:57)
[2016-08-10] MEDS: TOLNAFTATE 1% CREAM 15 GM TUBE TP SCH ×3 (00:07→21:40)
[2016-08-10] MEDS: ALBUTEROL SO4 2.5/IPRATROPIUM 0.5 INH SOL 3 ML VIAL.NEB. NEB PRN ×4 (04:45→23:49)
[2016-08-10] MEDS: metFORMIN HCL 500 MG TABLET (FP) PO SCH ×2 (07:11→16:58)
[2016-08-10] MEDS: INSULIN SLIDING SCALE (NOVOLOG) 1 VIAL SQ SCH ×2 (07:11→17:01)
[2016-08-10] MEDS: PRENATAL VITAMINS W/ FOLIC ACID TABLET (FP) PO SCH (10:30)
[2016-08-10] MEDS: BUDESONIDE/FORMETEROL FUMARATE 80/4.5 mcg INHALER IH SCH ×2 (10:30→21:39)
[2016-08-10] MEDS: RIVAROXABAN 20 MG TABLET PO SCH (17:44)
[2016-08-10] MEDS: THIAMINE HCL 100 MG TABLET (FP) PO SCH (21:40)
[2016-08-10] MEDS: diphenhydrAMINE HCL 50 MG CAPSULE PO PRN (21:40)
[2016-08-10] MEDS: ALBUTEROL SO4 6.7 GM HFA INHALER IH PRN (21:40)
[2016-08-11] MEDS: ALBUTEROL SO4 2.5/IPRATROPIUM 0.5 INH SOL 3 ML VIAL.NEB. NEB PRN ×3 (05:41→22:48)
[2016-08-11] MEDS: metFORMIN HCL 500 MG TABLET (FP) PO SCH ×2 (07:28→16:59)
[2016-08-11] MEDS: INSULIN SLIDING SCALE (NOVOLOG) 1 VIAL SQ SCH ×2 (07:28→17:01)
[2016-08-11] MEDS: PRENATAL VITAMINS W/ FOLIC ACID TABLET (FP) PO SCH (10:38)
[2016-08-11] MEDS: BUDESONIDE/FORMETEROL FUMARATE 80/4.5 mcg INHALER IH SCH ×2 (10:38→21:21)
[2016-08-11] MEDS: TOLNAFTATE 1% CREAM 15 GM TUBE TP SCH ×2 (10:38→22:49)
[2016-08-11] MEDS: RIVAROXABAN 20 MG TABLET PO SCH (16:59)
[2016-08-11] MEDS: diphenhydrAMINE HCL 50 MG CAPSULE PO PRN (21:21)
[2016-08-11] MEDS: THIAMINE HCL 100 MG TABLET (FP) PO SCH (21:21)
[2016-08-12] MEDS: metFORMIN HCL 500 MG TABLET (FP) PO SCH ×2 (06:28→16:46)
[2016-08-12] MEDS: INSULIN SLIDING SCALE (NOVOLOG) 1 VIAL SQ SCH ×2 (06:29→16:47)
[2016-08-12] MEDS: ALBUTEROL SO4 2.5/IPRATROPIUM 0.5 INH SOL 3 ML VIAL.NEB. NEB PRN ×4 (06:58→23:24)
[2016-08-12] MEDS: BUDESONIDE/FORMETEROL FUMARATE 80/4.5 mcg INHALER IH SCH ×2 (10:30→21:59)
[2016-08-12] MEDS: TOLNAFTATE 1% CREAM 15 GM TUBE TP SCH ×2 (10:30→22:00)
[2016-08-12] MEDS: PRENATAL VITAMINS W/ FOLIC ACID TABLET (FP) PO SCH (10:30)
[2016-08-12] MEDS: guaiFENesin/D-METHORPHAN HB 10 ML UNIT-DOSE CUPS PO PRN ×2 (11:19→22:17)
[2016-08-12] MEDS ORDERED: INSULIN (NOVOLOG) ASPART 100 UNITS/ML 10ML VIAL ONE (16:45)
[2016-08-12] MEDS: RIVAROXABAN 20 MG TABLET PO SCH (16:48)
[2016-08-12] MEDS: diphenhydrAMINE HCL 50 MG CAPSULE PO PRN (21:59)
[2016-08-12] MEDS: THIAMINE HCL 100 MG TABLET (FP) PO SCH (21:59)
[2016-08-13] MEDS: metFORMIN HCL 500 MG TABLET (FP) PO SCH ×2 (06:01→16:44)
[2016-08-13] MEDS: INSULIN SLIDING SCALE (NOVOLOG) 1 VIAL SQ SCH ×2 (06:02→16:46)
[2016-08-13] MEDS: ALBUTEROL SO4 2.5/IPRATROPIUM 0.5 INH SOL 3 ML VIAL.NEB. NEB PRN ×3 (06:37→16:52)
[2016-08-13] MEDS: PRENATAL VITAMINS W/ FOLIC ACID TABLET (FP) PO SCH (10:40)
[2016-08-13] MEDS: BUDESONIDE/FORMETEROL FUMARATE 80/4.5 mcg INHALER IH SCH (10:40)
[2016-08-13] MEDS: TOLNAFTATE 1% CREAM 15 GM TUBE TP SCH ×2 (10:44→21:38)
[2016-08-13] MEDS ORDERED: LIDOCAINE 5% TOPICAL PATCH TP ONE (14:50)
[2016-08-13] MEDS ORDERED: INSULIN (NOVOLOG) ASPART 100 UNITS/ML 10ML VIAL ONE (16:44)
[2016-08-13] MEDS: RIVAROXABAN 20 MG TABLET PO SCH (16:44)
[2016-08-13] MEDS: ALBUTEROL SO4 6.7 GM HFA INHALER IH PRN (19:07)
[2016-08-13] MEDS: ACETAMINOPHEN 325 MG TABLET (FP) PO PRN (19:08)
[2016-08-13] MEDS: guaiFENesin/D-METHORPHAN HB 10 ML UNIT-DOSE CUPS PO PRN (19:29)
[2016-08-13] MEDS ORDERED: AZITHROMYCIN 250 MG TABLET (FP) PO ONE (19:36)
[2016-08-13] MEDS: BUDESONIDE/FORMETEROL FUMARATE 160/4.5 mcg INHALER IH SCH (21:37)
[2016-08-13] MEDS: THIAMINE HCL 100 MG TABLET (FP) PO SCH (21:38)
[2016-08-13] MEDS: diphenhydrAMINE HCL 50 MG CAPSULE PO PRN (21:38)
[2016-08-14] MEDS: ALBUTEROL SO4 2.5/IPRATROPIUM 0.5 INH SOL 3 ML VIAL.NEB. NEB PRN ×3 (06:28→23:30)
[2016-08-14] MEDS: INSULIN SLIDING SCALE (NOVOLOG) 1 VIAL SQ SCH ×2 (06:33→16:58)
[2016-08-14] MEDS: metFORMIN HCL 500 MG TABLET (FP) PO SCH ×2 (06:33→16:56)
[2016-08-14] MEDS: ALBUTEROL SO4 6.7 GM HFA INHALER IH PRN ×2 (08:14→22:03)
[2016-08-14] MEDS: TOLNAFTATE 1% CREAM 15 GM TUBE TP SCH ×2 (10:17→22:03)
[2016-08-14] MEDS: PRENATAL VITAMINS W/ FOLIC ACID TABLET (FP) PO SCH (10:17)
[2016-08-14] MEDS: AZITHROMYCIN 250 MG TABLET (FP) PO SCH (10:17)
[2016-08-14] MEDS: LIDOCAINE 5% TOPICAL PATCH TP SCH (10:18)
[2016-08-14] MEDS: BUDESONIDE/FORMETEROL FUMARATE 160/4.5 mcg INHALER IH SCH ×2 (10:19→22:03)
[2016-08-14] MEDS: RIVAROXABAN 20 MG TABLET PO SCH (16:56)
[2016-08-14] MEDS ORDERED: INSULIN (NOVOLOG) ASPART 100 UNITS/ML 10ML VIAL ONE (19:12)
[2016-08-14] MEDS: diphenhydrAMINE HCL 50 MG CAPSULE PO PRN (22:03)
[2016-08-14] MEDS: THIAMINE HCL 100 MG TABLET (FP) PO SCH (22:03)
[2016-08-14] MEDS: guaiFENesin/D-METHORPHAN HB 10 ML UNIT-DOSE CUPS PO PRN (23:29)
[2016-08-15] MEDS: ALBUTEROL SO4 6.7 GM HFA INHALER IH PRN (05:15)
[2016-08-15] MEDS: metFORMIN HCL 500 MG TABLET (FP) PO SCH ×2 (06:06→17:08)
[2016-08-15] MEDS ORDERED: PT OWN MED DRAWER 7, Y5N ONE (06:21)
[2016-08-15] MEDS: ALBUTEROL SO4 2.5/IPRATROPIUM 0.5 INH SOL 3 ML VIAL.NEB. NEB PRN ×4 (06:26→22:50)
[2016-08-15] MEDS: INSULIN SLIDING SCALE (NOVOLOG) 1 VIAL SQ SCH ×2 (06:28→17:10)
[2016-08-15] MEDS: PRENATAL VITAMINS W/ FOLIC ACID TABLET (FP) PO SCH (10:35)
[2016-08-15] MEDS: AZITHROMYCIN 250 MG TABLET (FP) PO SCH (10:35)
[2016-08-15] MEDS: BUDESONIDE/FORMETEROL FUMARATE 160/4.5 mcg INHALER IH SCH ×2 (10:35→21:24)
[2016-08-15] MEDS: TOLNAFTATE 1% CREAM 15 GM TUBE TP SCH ×2 (10:36→21:25)
[2016-08-15] MEDS: LIDOCAINE 5% TOPICAL PATCH TP SCH (10:36)
[2016-08-15] MEDS: guaiFENesin/D-METHORPHAN HB 10 ML UNIT-DOSE CUPS PO PRN ×2 (12:39→22:49)
[2016-08-15] MEDS ORDERED: INSULIN (NOVOLOG) ASPART 100 UNITS/ML 10ML VIAL ONE (17:07)
[2016-08-15] MEDS: RIVAROXABAN 20 MG TABLET PO SCH (17:38)
[2016-08-15] MEDS: THIAMINE HCL 100 MG TABLET (FP) PO SCH (21:24)
[2016-08-15] MEDS: diphenhydrAMINE HCL 50 MG CAPSULE PO PRN (21:24)
[2016-08-16] MEDS: INSULIN SLIDING SCALE (NOVOLOG) 1 VIAL SQ SCH ×2 (06:11→16:51)
[2016-08-16] MEDS: metFORMIN HCL 500 MG TABLET (FP) PO SCH ×2 (06:11→16:49)
[2016-08-16] MEDS: ALBUTEROL SO4 2.5/IPRATROPIUM 0.5 INH SOL 3 ML VIAL.NEB. NEB PRN ×4 (06:11→21:30)
[2016-08-16] MEDS ORDERED: INSULIN (NOVOLOG) ASPART 100 UNITS/ML 10ML VIAL ONE (06:46)
[2016-08-16] MEDS: BUDESONIDE/FORMETEROL FUMARATE 160/4.5 mcg INHALER IH SCH ×2 (11:18→21:28)
[2016-08-16] MEDS: PRENATAL VITAMINS W/ FOLIC ACID TABLET (FP) PO SCH (11:19)
[2016-08-16] MEDS: AZITHROMYCIN 250 MG TABLET (FP) PO SCH (11:19)
[2016-08-16] MEDS: TOLNAFTATE 1% CREAM 15 GM TUBE TP SCH ×2 (11:19→22:00)
[2016-08-16] MEDS: ALBUTEROL SO4 6.7 GM HFA INHALER IH PRN ×3 (11:19→20:11)
[2016-08-16] MEDS: LIDOCAINE 5% TOPICAL PATCH TP SCH (11:20)
[2016-08-16] MEDS: RIVAROXABAN 20 MG TABLET PO SCH (16:49)
[2016-08-16] MEDS: guaiFENesin/D-METHORPHAN HB 10 ML UNIT-DOSE CUPS PO PRN (20:09)
[2016-08-16] MEDS: THIAMINE HCL 100 MG TABLET (FP) PO SCH (21:29)
[2016-08-16] MEDS: diphenhydrAMINE HCL 50 MG CAPSULE PO PRN (21:29)
[2016-08-17] MEDS: ALBUTEROL SO4 2.5/IPRATROPIUM 0.5 INH SOL 3 ML VIAL.NEB. NEB PRN ×4 (05:58→21:30)
[2016-08-17] MEDS: metFORMIN HCL 500 MG TABLET (FP) PO SCH ×2 (06:19→16:49)
[2016-08-17] MEDS: INSULIN SLIDING SCALE (NOVOLOG) 1 VIAL SQ SCH ×2 (06:21→21:54)
[2016-08-17] MEDS: ALBUTEROL SO4 6.7 GM HFA INHALER IH PRN ×3 (08:39→18:44)
[2016-08-17] MEDS: BUDESONIDE/FORMETEROL FUMARATE 160/4.5 mcg INHALER IH SCH ×2 (09:45→21:54)
[2016-08-17] MEDS: AZITHROMYCIN 250 MG TABLET (FP) PO SCH (09:45)
[2016-08-17] MEDS: LIDOCAINE 5% TOPICAL PATCH TP SCH (09:45)
[2016-08-17] MEDS: PRENATAL VITAMINS W/ FOLIC ACID TABLET (FP) PO SCH (09:45)
[2016-08-17] MEDS: TOLNAFTATE 1% CREAM 15 GM TUBE TP SCH ×2 (09:48→21:54)
[2016-08-17] MEDS: guaiFENesin/D-METHORPHAN HB 10 ML UNIT-DOSE CUPS PO PRN ×2 (10:18→22:48)
[2016-08-17] MEDS: RIVAROXABAN 20 MG TABLET PO SCH (17:00)
[2016-08-17] MEDS: THIAMINE HCL 100 MG TABLET (FP) PO SCH (21:54)
[2016-08-17] MEDS: diphenhydrAMINE HCL 50 MG CAPSULE PO PRN (21:54)
[2016-08-18] MEDS: ALBUTEROL SO4 2.5/IPRATROPIUM 0.5 INH SOL 3 ML VIAL.NEB. NEB PRN ×4 (06:13→23:08)
[2016-08-18] MEDS: metFORMIN HCL 500 MG TABLET (FP) PO SCH ×2 (06:39→16:40)
[2016-08-18] MEDS: INSULIN SLIDING SCALE (NOVOLOG) 1 VIAL SQ SCH ×2 (06:40→16:41)
[2016-08-18] MEDS: ALBUTEROL SO4 6.7 GM HFA INHALER IH PRN ×2 (08:24→16:41)
[2016-08-18] MEDS: guaiFENesin/D-METHORPHAN HB 10 ML UNIT-DOSE CUPS PO PRN (08:53)
[2016-08-18] MEDS: LIDOCAINE 5% TOPICAL PATCH TP SCH (10:12)
[2016-08-18] MEDS: BUDESONIDE/FORMETEROL FUMARATE 160/4.5 mcg INHALER IH SCH ×2 (10:12→21:36)
[2016-08-18] MEDS: TOLNAFTATE 1% CREAM 15 GM TUBE TP SCH ×2 (10:12→22:46)
[2016-08-18] MEDS: PRENATAL VITAMINS W/ FOLIC ACID TABLET (FP) PO SCH (10:12)
[2016-08-18] MEDS: RIVAROXABAN 20 MG TABLET PO SCH (16:40)
[2016-08-18] MEDS: diphenhydrAMINE HCL 50 MG CAPSULE PO PRN (21:37)
[2016-08-18] MEDS: THIAMINE HCL 100 MG TABLET (FP) PO SCH (21:37)
[2016-08-19] MEDS: ALBUTEROL SO4 2.5/IPRATROPIUM 0.5 INH SOL 3 ML VIAL.NEB. NEB PRN ×3 (05:55→17:32)
[2016-08-19] MEDS: metFORMIN HCL 500 MG TABLET (FP) PO SCH ×2 (07:22→16:59)
[2016-08-19] MEDS: INSULIN SLIDING SCALE (NOVOLOG) 1 VIAL SQ SCH ×2 (07:53→17:00)
[2016-08-19] MEDS: guaiFENesin/D-METHORPHAN HB 10 ML UNIT-DOSE CUPS PO PRN ×2 (08:20→17:27)
[2016-08-19] MEDS: LIDOCAINE 5% TOPICAL PATCH TP SCH (10:28)
[2016-08-19] MEDS: PRENATAL VITAMINS W/ FOLIC ACID TABLET (FP) PO SCH (10:28)
[2016-08-19] MEDS: TOLNAFTATE 1% CREAM 15 GM TUBE TP SCH ×2 (10:29→21:44)
[2016-08-19] MEDS: BUDESONIDE/FORMETEROL FUMARATE 160/4.5 mcg INHALER IH SCH ×2 (10:29→21:42)
[2016-08-19] MEDS: ALBUTEROL SO4 6.7 GM HFA INHALER IH PRN ×3 (10:30→21:43)
[2016-08-19] MEDS: RIVAROXABAN 20 MG TABLET PO SCH (16:59)
[2016-08-19] MEDS: THIAMINE HCL 100 MG TABLET (FP) PO SCH (21:43)
[2016-08-19] MEDS: diphenhydrAMINE HCL 50 MG CAPSULE PO PRN (21:43)
[2016-08-20] MEDS: INSULIN SLIDING SCALE (NOVOLOG) 1 VIAL SQ SCH ×2 (06:28→16:54)
[2016-08-20] MEDS: metFORMIN HCL 500 MG TABLET (FP) PO SCH ×2 (06:28→16:53)
[2016-08-20] MEDS: ALBUTEROL SO4 2.5/IPRATROPIUM 0.5 INH SOL 3 ML VIAL.NEB. NEB PRN ×3 (06:29→22:18)
[2016-08-20] MEDS: LIDOCAINE 5% TOPICAL PATCH TP SCH (10:20)
[2016-08-20] MEDS: PRENATAL VITAMINS W/ FOLIC ACID TABLET (FP) PO SCH (10:20)
[2016-08-20] MEDS: BUDESONIDE/FORMETEROL FUMARATE 160/4.5 mcg INHALER IH SCH ×2 (10:20→21:53)
[2016-08-20] MEDS: TOLNAFTATE 1% CREAM 15 GM TUBE TP SCH ×2 (10:21→23:47)
[2016-08-20] MEDS ORDERED: NAPHAZOLINE/PHENIRAMINE OPHTHALMIC 15 ML BOTTLE OU PRN (12:20)
[2016-08-20] MEDS: guaiFENesin/D-METHORPHAN HB 10 ML UNIT-DOSE CUPS PO PRN (12:20)
[2016-08-20] MEDS: RIVAROXABAN 20 MG TABLET PO SCH (16:52)
[2016-08-20] MEDS ORDERED: INSULIN (NOVOLOG) ASPART 100 UNITS/ML 10ML VIAL ONE (16:53)
[2016-08-20] MEDS: THIAMINE HCL 100 MG TABLET (FP) PO SCH (21:53)
[2016-08-20] MEDS: diphenhydrAMINE HCL 50 MG CAPSULE PO PRN (21:53)
[2016-08-21] MEDS: ALBUTEROL SO4 2.5/IPRATROPIUM 0.5 INH SOL 3 ML VIAL.NEB. NEB PRN ×3 (06:03→20:13)
[2016-08-21] MEDS: INSULIN SLIDING SCALE (NOVOLOG) 1 VIAL SQ SCH ×2 (07:29→17:08)
[2016-08-21] MEDS: metFORMIN HCL 500 MG TABLET (FP) PO SCH ×2 (07:29→17:07)
[2016-08-21] MEDS: BUDESONIDE/FORMETEROL FUMARATE 160/4.5 mcg INHALER IH SCH ×2 (10:19→21:34)
[2016-08-21] MEDS: LIDOCAINE 5% TOPICAL PATCH TP SCH (10:19)
[2016-08-21] MEDS: TOLNAFTATE 1% CREAM 15 GM TUBE TP SCH ×2 (10:19→21:35)
[2016-08-21] MEDS: PRENATAL VITAMINS W/ FOLIC ACID TABLET (FP) PO SCH (10:19)
[2016-08-21] MEDS: guaiFENesin/D-METHORPHAN HB 10 ML UNIT-DOSE CUPS PO PRN ×2 (10:45→21:58)
[2016-08-21] MEDS: RIVAROXABAN 20 MG TABLET PO SCH (17:10)
[2016-08-21] MEDS: ALBUTEROL SO4 6.7 GM HFA INHALER IH PRN (17:47)
[2016-08-21] MEDS: THIAMINE HCL 100 MG TABLET (FP) PO SCH (21:35)
[2016-08-21] MEDS: diphenhydrAMINE HCL 50 MG CAPSULE PO PRN (21:35)
[2016-08-22] MEDS: metFORMIN HCL 500 MG TABLET (FP) PO SCH ×2 (06:37→17:36)
[2016-08-22] MEDS: INSULIN SLIDING SCALE (NOVOLOG) 1 VIAL SQ SCH ×2 (06:37→16:57)
[2016-08-22] MEDS: BUDESONIDE/FORMETEROL FUMARATE 160/4.5 mcg INHALER IH SCH ×2 (10:17→22:02)
[2016-08-22] MEDS: LIDOCAINE 5% TOPICAL PATCH TP SCH (10:17)
[2016-08-22] MEDS: PRENATAL VITAMINS W/ FOLIC ACID TABLET (FP) PO SCH (10:17)
[2016-08-22] MEDS: TOLNAFTATE 1% CREAM 15 GM TUBE TP SCH ×2 (11:24→22:01)
[2016-08-22] MEDS: ALBUTEROL SO4 2.5/IPRATROPIUM 0.5 INH SOL 3 ML VIAL.NEB. NEB PRN ×3 (13:24→22:36)
[2016-08-22] MEDS: ALBUTEROL SO4 6.7 GM HFA INHALER IH PRN (17:37)
[2016-08-22] MEDS: RIVAROXABAN 20 MG TABLET PO SCH (18:22)
[2016-08-22] MEDS: THIAMINE HCL 100 MG TABLET (FP) PO SCH (22:01)
[2016-08-22] MEDS: diphenhydrAMINE HCL 50 MG CAPSULE PO PRN (22:01)
[2016-08-23] MEDS: ALBUTEROL SO4 2.5/IPRATROPIUM 0.5 INH SOL 3 ML VIAL.NEB. NEB PRN ×3 (06:32→22:34)
[2016-08-23] MEDS: metFORMIN HCL 500 MG TABLET (FP) PO SCH ×2 (07:39→16:53)
[2016-08-23] MEDS: INSULIN SLIDING SCALE (NOVOLOG) 1 VIAL SQ SCH ×2 (07:39→16:53)
[2016-08-23] MEDS: ALBUTEROL SO4 6.7 GM HFA INHALER IH PRN ×2 (08:35→17:06)
[2016-08-23] MEDS: LIDOCAINE 5% TOPICAL PATCH TP SCH (10:30)
[2016-08-23] MEDS: PRENATAL VITAMINS W/ FOLIC ACID TABLET (FP) PO SCH (10:30)
[2016-08-23] MEDS: BUDESONIDE/FORMETEROL FUMARATE 160/4.5 mcg INHALER IH SCH ×2 (10:31→21:57)
[2016-08-23] MEDS: TOLNAFTATE 1% CREAM 15 GM TUBE TP SCH ×2 (10:31→21:58)
[2016-08-23] MEDS: guaiFENesin/D-METHORPHAN HB 10 ML UNIT-DOSE CUPS PO PRN (16:02)
[2016-08-23] MEDS ORDERED: PT OWN MED DRAWER 7, Y5N ONE (17:06)
[2016-08-23] MEDS: RIVAROXABAN 20 MG TABLET PO SCH (17:40)
[2016-08-23] MEDS: THIAMINE HCL 100 MG TABLET (FP) PO SCH (21:57)
[2016-08-23] MEDS: diphenhydrAMINE HCL 50 MG CAPSULE PO PRN (21:57)
[2016-08-24] MEDS: guaiFENesin/D-METHORPHAN HB 10 ML UNIT-DOSE CUPS PO PRN ×2 (00:19→23:47)
[2016-08-24] MEDS: ALBUTEROL SO4 2.5/IPRATROPIUM 0.5 INH SOL 3 ML VIAL.NEB. NEB PRN ×2 (06:27→20:00)
[2016-08-24] MEDS: INSULIN SLIDING SCALE (NOVOLOG) 1 VIAL SQ SCH ×2 (07:15→16:53)
[2016-08-24] MEDS: metFORMIN HCL 500 MG TABLET (FP) PO SCH ×2 (07:15→16:53)
[2016-08-24] MEDS ORDERED: PT OWN MED DRAWER 7, Y5N ONE ×3 (08:46→16:54)
[2016-08-24] MEDS: PRENATAL VITAMINS W/ FOLIC ACID TABLET (FP) PO SCH (10:52)
[2016-08-24] MEDS: LIDOCAINE 5% TOPICAL PATCH TP SCH (10:53)
[2016-08-24] MEDS: BUDESONIDE/FORMETEROL FUMARATE 160/4.5 mcg INHALER IH SCH ×2 (10:55→22:01)
[2016-08-24] MEDS: TOLNAFTATE 1% CREAM 15 GM TUBE TP SCH ×2 (10:58→22:02)
[2016-08-24] MEDS: RIVAROXABAN 20 MG TABLET PO SCH (16:53)
[2016-08-24] MEDS: ALBUTEROL SO4 6.7 GM HFA INHALER IH PRN (16:54)
[2016-08-24] MEDS: diphenhydrAMINE HCL 50 MG CAPSULE PO PRN (22:01)
[2016-08-24] MEDS: THIAMINE HCL 100 MG TABLET (FP) PO SCH (22:02)
[2016-08-25] MEDS: ALBUTEROL SO4 2.5/IPRATROPIUM 0.5 INH SOL 3 ML VIAL.NEB. NEB PRN ×2 (05:55→15:35)
[2016-08-25] MEDS: INSULIN SLIDING SCALE (NOVOLOG) 1 VIAL SQ SCH ×2 (07:33→16:54)
[2016-08-25] MEDS ORDERED: INSULIN (NOVOLOG) ASPART 100 UNITS/ML 10ML VIAL ONE (07:33)
[2016-08-25] MEDS: metFORMIN HCL 500 MG TABLET (FP) PO SCH ×2 (07:33→16:53)
[2016-08-25] MEDS ORDERED: PT OWN MED DRAWER 7, Y5N ONE (08:56)
[2016-08-25] MEDS: BUDESONIDE/FORMETEROL FUMARATE 160/4.5 mcg INHALER IH SCH ×2 (10:16→21:31)
[2016-08-25] MEDS: TOLNAFTATE 1% CREAM 15 GM TUBE TP SCH ×2 (10:16→21:32)
[2016-08-25] MEDS: PRENATAL VITAMINS W/ FOLIC ACID TABLET (FP) PO SCH (10:16)
[2016-08-25] MEDS: LIDOCAINE 5% TOPICAL PATCH TP SCH (10:16)
[2016-08-25] MEDS: guaiFENesin/D-METHORPHAN HB 10 ML UNIT-DOSE CUPS PO PRN ×3 (10:17→21:32)
[2016-08-25] MEDS: ALBUTEROL SO4 6.7 GM HFA INHALER IH PRN ×2 (10:19→21:31)
[2016-08-25] MEDS: RIVAROXABAN 20 MG TABLET PO SCH (16:54)
[2016-08-25] MEDS: THIAMINE HCL 100 MG TABLET (FP) PO SCH (21:31)
[2016-08-25] MEDS: diphenhydrAMINE HCL 50 MG CAPSULE PO PRN (21:31)
[2016-08-26] MEDS: ALBUTEROL SO4 2.5/IPRATROPIUM 0.5 INH SOL 3 ML VIAL.NEB. NEB PRN (06:03)
[2016-08-26] MEDS: metFORMIN HCL 500 MG TABLET (FP) PO SCH (06:30)
[2016-08-26] MEDS: INSULIN SLIDING SCALE (NOVOLOG) 1 VIAL SQ SCH (06:32)
--- NOTE | 2016-08-26 07:04 | PN ---
Psychiatric Progress Note Vital Signs: Vital Signs Period Temp Pulse Resp BP Sys/Solorio Pulse Ox Last 24 Hr 98.6 F 81 18-20 147/81 Date of Session: 08/26/16 Chief Complaint:: Psychiatrist Discharge Note HPI: Patient addressing Alcohol and Cocaine Dependence comorbid with Nicotine Dependence Current Medications: Active Medications Generic Name Dose Route Start Last Admin Trade Name Freq PRN Reason Stop Dose Admin Acetaminophen 650 mg 07/29/16 13:59 08/13/16 19:08 Tylenol - PO 650 mg Q4H PRN Administration FEVER OR PAIN Al Hydroxide/Mg Hydroxide 30 ml 07/29/16 13:59 07/29/16 17:59 Mylanta Oral Suspension - PO 30 ml Q6H PRN Administration DYSPEPSIA Albuterol Sulfate 2 puff 07/29/16 14:01 08/25/16 21:31 Ventolin Hfa Inhaler - IH 2 inh Q4H PRN Administration ASTHMA Albuterol/Ipratropium 1 amp 08/14/16 14:27 08/26/16 06:03 Duoneb - NEB 1 amp Q4H PRN Administration SHORTNESS OF BREATH Budesonide/Formoterol Fumarate 2 puff 08/13/16 22:00 08/25/16 21:31 Symbicort 160/4.5mcg - IH 2 puff BID MARIA R Administration Diphenhydramine HCl 50 mg 07/29/16 13:59 08/25/16 21:31 Benadryl - PO 50 mg HSMR1 PRN Administration FOR ITCHING Eucalyptus/Menthol/Phenol/Sorbitol 1 each 07/29/16 13:59 Cepastat Lozenge - MM Q4H PRN SORE THROAT Guaifenesin 10 ml 07/29/16 13:59 08/25/16 21:32 Robitussin Dm - PO 10 ml Q6H PRN Administration COUGH Insulin Aspart 1 vial 08/01/16 16:30 08/26/16 06:32 Novolog Vial Sliding Scale - SQ Not Given BIDAC [facility] Protocol Lidocaine 1 patch 08/14/16 10:00 08/25/16 10:16 Lidoderm Patch - TP 1 patch DAILY MARIA R Administration Loperamide HCl 4 mg 07/29/16 13:59 Imodium - PO Q6H PRN DIARRHEA Magnesium Hydroxide 30 ml 07/29/16 13:59 Milk Of Magnesia - PO DAILY PRN CONSTIPATION Metformin HCl 500 mg 07/29/16 16:30 08/26/16 06:30 Glucophage - PO 500 mg BIDAC MARIA R Administration Naphazoline HCl/Pheniramine Maleate 1 drop 08/20/16 12:20 Visine-A - OU QID PRN DRY EYES Multivit/Folic Acid/Iron 1 tab 07/30/16 10:00 08/25/16 10:16 Vitamins (Sjr) - PO 1 tab DAILY MARIA R Administration Pseudoephedrine/Triprolidine 1 combo 07/29/16 13:59 Actifed - PO TID PRN NASAL CONGESTION Rivaroxaban 20 mg 08/09/16 17:00 08/25/16 16:54 Xarelto - PO 20 mg DAILY@1700 MARIA R Administration Thiamine HCl 100 mg 07/29/16 22:00 08/25/16 21:31 Vitamin B1 - PO 100 mg HS MARIA R Administration Tolnaftate 1 applic 08/05/16 22:00 08/25/16 21:32 Tinactin 1% Cream - TP 1 applic BID MARIA R Administration Current Side Effect: No Lab tests ordered: Yes Lab tests reviewed: Yes Provider note:: Patient has completed this program today. He has met his treatment goals and will continue to address his issues in outpatient treatment at [facility] at [address] [place] [address]. He verbalized understanding of the negative consequences of his addiction and from his participation in this program, he has learned the importance of establishing a sober network in order to maintain sobriety. He is stable for discharge today Total face to face time:: 35 Mental Status Exam - Mental Status Exam Alert and Oriented to: Time, Place, Person Cognitive Function: Fair Patient Appearance: Well Groomed Mood: Hopeful, Euthymic Affect: Appropriate Patient Behavior: Cooperative Speech Pattern: Clear Voice Loudness: Normal Thought Process: Intact Thought Disorder: Not Present Hallucinations: Denies Suicidal Ideation: Denies Homicidal Ideation: Denies Insight/Judgement: Fair Sleep: Fair Appetite: Good Muscle strength/Tone: Normal Gait/Station: Normal Psychiatric Treatment Plan - Problem List (1) Alcohol dependence with uncomplicated withdrawal Current Visit: No (2) Cocaine dependence, uncomplicated Current Visit: No (3) Nicotine dependence Current Visit: No Qualifiers: Nicotine product type: cigarettes Substance use status: uncomplicated Qualified Code(s): F17.210 - Nicotine dependence, cigarettes, uncomplicated (4) Asthma Current Visit: No Qualifiers: Asthma severity: mild intermittent (5) Diabetes mellitus Current Visit: No Qualifiers: Diabetes mellitus type: type 1 Diabetes mellitus complication status: without complication Qualified Code(s): E10.9 - Type 1 diabetes mellitus without complications Initial treatment plan: Patient is discharged today and referred to [facility] for outpatient treatment
[2016-08-26 08:05] VITALS: BP 131/81; PULSE 87; TEMP 98.2
[2016-08-26] MEDS ORDERED: PT OWN MED DRAWER 7, Y5N ONE (08:29)
== END 2016-08-26 09:55 | disposition home or self-care (01) | DRG 772 ==
LOC: YASAS 11:36 → Y3W 11:37
PROVIDERS: ADMIT Psychiatry & Neurology Psychiatry; ATTEND Psychiatry & Neurology Psychiatry
PROC: HZ42ZZZ Group Counseling for Substance Abuse Treatment, Cognitive-Behavioral (ICD-10-PCS; principal; 2016-07-29)
DX: F10.20 Alcohol dependence, uncomplicated (principal); F14.20 Cocaine dependence, uncomplicated; F17.210 Nicotine dependence, cigarettes, uncomplicated; J45.20 Mild intermittent asthma, uncomplicated; E10.9 Type 1 diabetes mellitus without complications; Z79.4 Long term (current) use of insulin; I82.4Z2 Acute embolism and thrombosis of unspecified deep veins of left distal lower extremity; Z79.01 Long term (current) use of anticoagulants
CPT/HCPCS: 71020-TC; 73560-TC-RT; 94640